=== PATIENT | female | born 1980 | race Caucasian/White ===

== ENCOUNTER 2023-07-02 12:12 | Emergency (ER) | payer OTHER, SELFPAY ==
[2023-07-02 12:26] VITALS: BP 158/97; PULSE 81; RESP 16; TEMP 36.4; O2SAT 100
--- NOTE | 2023-07-02 13:31 | ED.EXTPRO ---
HPI - Extremity Problem General Chief complaint: Extremity Problem,Nontraumatic Stated complaint: Leg pain Time Seen by Provider: 07/02/23 13:32 Source: patient, RN notes reviewed and old records reviewed Mode of arrival: ambulatory Limitations: no limitations History of Present Illness HPI Narrative: 43 year old female who presents to [facility] care with complaints of left leg pain from mid upper leg to calf area. Patient reports that her leg feels weird and like it is swollen since yesterday. Patient reports she did do driving trip from [place] down here yesterday and she did a workout a couple of day ago. Patient has no warmth, redness or any tenderness to calf region on palpation. Patient states her father does have history of DVT's, denies any family history of abnormal clotting diseases, and she did previously take control, denies any known injury to her left leg. MD Complaint: extremity pain, extremity swelling and other Onset (ago): day(s) (day 2 of symptoms) Location: left and lower extremity Severity scale (1-10): 2 Quality: aching Related Data Home Medications Medication Instructions Recorded Confirmed No Home Medications 07/02/23 07/02/23 Allergies Allergy/AdvReac Type Severity Reaction Status Date / Time No Known Allergies Allergy Verified 07/02/23 13:21 Review of Systems Review of Systems: CONSTITUTIONAL: Denies fever, chills, or sweats. EYES: Denies visual changes, redness, or discharge. ENT: Denies rhinorrhea, congestion, sore throat, or otalgia. CARDIOVASCULAR: Denies chest pain, palpitations, or edema. RESPIRATORY: Denies cough or dyspnea. GASTROINTESTINAL: Denies abdominal pain, nausea, vomiting, or diarrhea. GENITOURINARY: Denies dysuria or hematuria. SKIN: Denies rash or itching. MUSCULOSKELETAL: Denies back pain, joint pain, reports mid thigh to calf region discomfort and feels swollen NEUROLOGIC: Denies headache, numbness, or weakness. PSYCHIATRIC: Denies anxiety or depression. All systems reviewed & are unremarkable except as noted in HPI and below PMFSH Family History Family History (Updated 07/04/23 @ 21:54 by Mae Paredes NP) Father DVT (deep venous thrombosis) Social History Social History (Updated 07/04/23 @ 21:53 by Mae L. Lena, WEB ADMINISTRATOR) Smoking status: Never smoker Alcohol intake: current Alcohol use details: social Substance use type: does not use Gender identity (if verbalized by the patient): Female Comments At time of signature, agree with nursing past medical, surgical, social and family history. There is no relevant family history pertinent to the presenting complaint Exam Narrative: GENERAL: Well-appearing, well-nourished, and in no acute distress. HEAD: Normocephalic, atraumatic. EYES: PERRLA and EOMI. ENT: Nares clear, no rhinorrhea or epistaxis. Mucous membranes moist. NECK: Supple.no lymphadenopathy CHEST: Clear to auscultation. No respiratory distress.no tachypnea,SAO2 100% on room air HEART: Regular rate and rhythm. No murmur heard. Normal peripheral pulses. ABDOMEN: Soft, nontender, nondistended, normal active bowel sounds. EXTREMITIES: Normal range of motion. Minimal edema left mid high to calf, no redness or warmth of left calf area or pain on palpation, strong pulses to left leg, no tingling or numbness, foot warm and pink. Negative Homans sign, SKIN: Warm, dry, no rash. NEURO: No focal deficits. Alert and oriented x3.on palpationk Course Course Emergency Course: Patient is aware of diagnosis, understands and agrees to treatment plan.? Anticipatory guidance given.? Patient agrees to follow-up as directed and is aware of reasons to seek care at the emergency department. Portions of this record may have been created with voice recognition software Level of Care: Express Care Visit Vital Signs Vital signs: Vital Signs Temperature 36.4 C 07/02/23 12:26 Pulse Rate 81 07/02/23 12:26 Respiratory Rate 16 07/02/23 12:26
== END 2023-07-02 13:50 | disposition home or self-care (01) ==
PROVIDERS: Emergency Provider Registered Nurse
DX: R22.42 Localized swelling, mass and lump, left lower limb (principal)
CPT/HCPCS: 99212; G0463